=== PATIENT | male | born 1995 | race American Indian/Alaskan Native ===

== ENCOUNTER 2017-04-21 22:34 | Emergency (ER) | payer SELFPAY ==
[2017-04-21 22:35] VITALS: BMI 20.9
[2017-04-21 22:50] VITALS: BP 114/77; RESP 18; TEMP 98.2
[2017-04-21] MEDS ORDERED: Acetaminophen-Codeine 300/30 mg Tab PO STA (23:24)
[2017-04-21] MEDS ORDERED: Acetaminophen-Codeine 300/30 mg Tab PO ONE (23:42)
--- NOTE | 2017-04-21 23:50 | C.PDOC ---
History Of Present Illness 22 year old male who presents to the ER with a complaint of intermittent left upper dental pain for the past 4 days, associated with facial swelling. Patient states he has been taking motrin with minimal relief; denies discharge from tooth or active bleeding. Time Seen by Provider: 04/21/17 23:08 Chief Complaint (Nursing): Dental Pain History Per: Patient History/Exam Limitations: no limitations Onset/Duration Of Symptoms: Days Current Symptoms Are (Timing): Still Present Recent travel outside of the [place] States: No Past Medical History Reviewed: Historical Data, Nursing Documentation, Vital Signs Vital Signs: Last Vital Signs Temp 98.2 F 04/21/17 22:48 Pulse 80 04/21/17 23:57 Resp 18 04/21/17 23:57 BP 114/77 04/21/17 22:48 Pulse Ox 95 04/22/17 02:57 - Medical History PMH: No Chronic Diseases Surgical History: No Surg Hx - [facility] Procedures APPLICATION OF SPLINT (08/25/06) TETANUS TOXOID ADMINIST (05/28/15) Family History: States: Unknown Family Hx - Social History Hx Tobacco Use: (DENIED) Hx Alcohol Use: No Hx Substance Use: No - Immunization History Hx Tetanus Toxoid Vaccination: No Hx Influenza Vaccination: No Hx Pneumococcal Vaccination: No Review Of Systems ENT: Positive for: Mouth Pain, Mouth Swelling. Negative for: Throat Pain, Throat Swelling Physical Exam - Physical Exam Appears: Non-toxic Skin: Normal Color, Warm, Dry Head: Atraumatic, Normacephalic Oral Mucosa: Moist Teeth: Caries (Left upper premolar), Avulsed (left upper premolar with cavity that area due to extraction) Gingiva: Erythema (Around left upper premolar), Tender (On palpation around left upper premolar) Neck: Normal, Supple Neurological/Psych: Oriented x3, Normal Speech, Normal Cognition ED Course And Treatment O2 Sat by Pulse Oximetry: 95 (Room air) Pulse Ox Interpretation: Normal Progress Note: Tylenol/codeine and penicillin administered. On reevaluation, patient's pain has much improved, will discharge with Rx and instructions to follow up with dentist. Disposition Counseled Patient/Family Regarding: Diagnosis, Need For Followup, Rx Given - Disposition Referrals: [facility]- dental clinic [Other] Disposition: HOME/ ROUTINE Disposition Time: 23:48 Condition: STABLE Additional Instructions: Please follow up with PMD Take meds as directed Return to ER if worse Prescriptions: Acetaminophen with Codeine [Tylenol with Codeine #3 Tablet] 1 - 2 each PO QID # 15 tablet Penicillin VK [Pen-Vee K] 2 tab PO BID #28 tab Instructions: Dental Caries (ED) Forms: [employer] Connect (Upper Sorbian) - Clinical Impression Clinical Impression: Dental caries - Scribe Statement The provider has reviewed the documentation as recorded by the Scribsaloni Harris All medical record entries made by the Kavonibsaloni were at my direction and personally dictated by me. I have reviewed the chart and agree that the record accurately reflects my personal performance of the history, physical exam, medical decision making, and the department course for this patient. I have also personally directed, reviewed, and agree with the discharge instructions and disposition.
[2017-04-21 23:57] VITALS: PULSE 80
[2017-04-22 02:52] VITALS: O2SAT 95
== END 2017-04-21 23:57 | disposition home or self-care (01) ==
LOC: C.ER 22:34
DX: K02.9 Dental caries, unspecified (principal)

== ENCOUNTER 2017-10-07 14:27 | Emergency (ER) | payer MEDICAID ==
[2017-10-07 14:28] VITALS: BMI 20.9
[2017-10-07 14:37] VITALS: O2SAT 97
--- NOTE | 2017-10-07 14:47 | C.PDOC ---
History Of Present Illness Pt is a 22 y/o male presents to the ED after tripping and falling down the stairs at about 1pm today. Patient reports that he landed on his right upper incisor and has been feeling pain there since the episode. Pt states that the pain is a "9". PMD: None . Time Seen by Provider: 10/07/17 14:38 Chief Complaint (Nursing): Dental Pain History Per: Patient History/Exam Limitations: no limitations Onset/Duration Of Symptoms: Hrs (x2 hours) Past Medical History Reviewed: Historical Data, Nursing Documentation, Vital Signs Vital Signs: Last Vital Signs Temp 98.3 F 10/07/17 14:56 Pulse 92 H 10/07/17 14:56 Resp 16 10/07/17 14:56 BP 113/69 10/07/17 14:56 Pulse Ox 97 10/07/17 15:24 - Medical History PMH: No Chronic Diseases Surgical History: No Surg Hx - [facility] Procedures APPLICATION OF SPLINT (08/25/06) TETANUS TOXOID ADMINIST (05/28/15) Family History: States: No Known Family Hx - Social History Hx Tobacco Use: No Hx Alcohol Use: No Hx Substance Use: No - Immunization History Hx Tetanus Toxoid Vaccination: No Hx Influenza Vaccination: No Hx Pneumococcal Vaccination: No Review Of Systems Except As Marked, All Systems Reviewed And Found Negative. (As per HPI, otherwise negative) Constitutional: Positive for: Other (Right incisor pain) Physical Exam - Physical Exam Appears: Well, No Acute Distress Skin: Normal Color, Warm, Dry Head: Atraumatic, Normacephalic Eye(s): left: Normal Inspection Ear(s): Bilateral: Normal Nose: Normal Tongue: Normal Appearing Teeth: Loose (Right incisor is loose and tender) Throat: Normal Neck: Normal, Supple Chest: Symmetrical, No Deformity Cardiovascular: Rhythm Regular, No Murmur Respiratory: Normal Breath Sounds, No Accessory Muscle Use Neurological/Psych: Oriented x3, Normal Cognition ED Course And Treatment O2 Sat by Pulse Oximetry: 97 (RA) Pulse Ox Interpretation: Normal Medical Decision Making Medical Decision Making: Time: 14:53 Upon provider reevaluation patient is feeling better, is medically stable, and requires no further treatment in the ED at this time. Patient will be discharged home with Rx for Motrin 600mg PO. Counseling was provided and all questions were answered regarding diagnosis and need for follow up with dentist. There is agreement to discharge plan. Return if symptoms persist or worsen. Clinical Impression: Dental Trauma Scribe Attestation: Documented by Carol Howard acting as a scribe for Cosme Yeager MD. Scribe Attestation: All medical record entries made by the Scribe were at my direction and personally dictated by me. I have reviewed the chart and agree that the record accurately reflects my personal performance of the history, physical exam, medical decision making, and the department course for this patient. I have also personally directed, reviewed, and agree with the discharge instructions and disposition. Disposition Counseled Patient/Family Regarding: Diagnosis, Need For Followup - Disposition Disposition: HOME/ ROUTINE Disposition Time: 14:53 Condition: STABLE Additional Instructions: Haja White, thank you for letting us take care of you today. Return to the ER if your symptoms worsen, or if any problems. Take the medication listed below as prescribed. We have provided you with a very extensive list of dentists that take patients without insurance. Please be sure to follow up with one of these dentists as soon as possible. Instructions: Acute Dental Trauma (ED) Forms: [employer] (Spanish) Print Language: CHINESE - POA Present On Arrival: None - Clinical Impression Clinical Impression: Dental trauma
[2017-10-07 14:57] VITALS: BP 113/69; PULSE 92; RESP 16; TEMP 98.3
== END 2017-10-07 15:11 | disposition home or self-care (01) ==
LOC: C.ER 14:27
DX: S09.93XA Unspecified injury of face, initial encounter (principal); W10.8XXA Fall (on) (from) other stairs and steps, initial encounter; Y93.9 Activity, unspecified

== ENCOUNTER 2017-10-14 16:38 | Emergency (ER) | payer SELFPAY ==
[2017-10-14 16:38] VITALS: BMI 20.9
[2017-10-14 16:52] VITALS: RESP 18; O2SAT 100
--- NOTE | 2017-10-14 18:48 | C.PDOC ---
History Of Present Illness 22 y/o male presents to the ER complaining of sore throat, fever and body aches for 2 days. Also notes that he has a cold sore. Patient denies having cough, congestion, chest pain and SOB. Girlfriend has same symptoms. Time Seen by Provider: 10/14/17 18:30 Chief Complaint (Nursing): ENT Problem History Per: Patient History/Exam Limitations: None Onset/Duration Of Symptoms: Days Current Symptoms Are (Timing): Still Present Severity: Moderate Past Medical History Reviewed: Historical Data, Nursing Documentation, Vital Signs Vital Signs: Last Vital Signs Temp 97.6 F 10/14/17 18:55 Pulse 80 10/14/17 18:55 Resp 18 10/14/17 18:55 BP 122/79 10/14/17 18:55 Pulse Ox 100 10/14/17 21:31 - Medical History PMH: No Chronic Diseases Surgical History: No Surg Hx - [facility] Procedures APPLICATION OF SPLINT (08/25/06) TETANUS TOXOID ADMINIST (05/28/15) Family History: States: No Known Family Hx - Social History Hx Tobacco Use: No Hx Alcohol Use: No Hx Substance Use: No - Immunization History Hx Tetanus Toxoid Vaccination: No Hx Influenza Vaccination: No Hx Pneumococcal Vaccination: No Review Of Systems Except As Marked, All Systems Reviewed And Found Negative. Constitutional: Negative for: Fever, Chills ENT: Positive for: Throat Pain. Negative for: Nose Congestion Physical Exam - Physical Exam Appears: Non-toxic, No Acute Distress Skin: Normal Color, Warm Head: Atraumatic, Normacephalic Eye(s): bilateral: Normal Inspection, PERRL, EOMI Ear(s): Bilateral: Normal Nose: Normal Oral Mucosa: Moist Throat: Erythema, Exudate, No Drooling Neck: Normal ROM, Supple Chest: Symmetrical Cardiovascular: Rhythm Regular Respiratory: Normal Breath Sounds, No Accessory Muscle Use, No Rales, No Rhonchi , No Wheezing Extremity: Normal ROM Neurological/Psych: Oriented x3, Normal Speech, Normal Cognition ED Course And Treatment O2 Sat by Pulse Oximetry: 100 (RA) Pulse Ox Interpretation: Normal Progress Note: Patient has been given Amoxicillin and Motrin. Patient has been discharged and told to follow up with PMD in 1-3 days. Disposition - Disposition Disposition: HOME/ ROUTINE Disposition Time: 18:47 Condition: STABLE Additional Instructions: Follow up with primary medical doctor in 1-3 days without fail for further evaluation. Take medications as prescribed. Return to the emergency department at any time if symptoms persist or worsen. 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 - Scribe Statement The provider has reviewed the documentation as recorded by the Kavonibe Manjeet Green Provider Attestation All medical record entries made by the Kavonibe were at my direction and personally dictated by me. I have reviewed the chart and agree that the record accurately reflects my personal performance of the history, physical exam, medical decision making, and the department course for this patient. I have also personally directed, reviewed, and agree with the discharge instructions and disposition.
[2017-10-14 18:56] VITALS: BP 122/79; PULSE 80; TEMP 97.6
== END 2017-10-14 19:02 | disposition home or self-care (01) ==
LOC: C.ER 16:38
DX: J02.9 Acute pharyngitis, unspecified (principal)